=== PATIENT | female | born 1960 | race Caucasian/White ===

== ENCOUNTER 2016-10-28 11:16 | Emergency (ER) | payer OTHER ==
[~2016-10-28] VITALS: Ht 172.7 cm; Wt 62.5 kg
[~2016-10-28 11:16] MED LIST: ACIP20TA19; ACIP20TA19 PO; ALPR-138 PO; CELE10TA9 PO; HYOS0.1251 PO; HYOS0.129 PO; LISI2.5T3 PO; NUCYNTA; PERC10TA27 PO; SENO8.6T6 PO; TOPR25TA2 PO
[2016-10-28 11:20] VITALS: BP 155/75; PULSE 67; RESP 20; TEMP 97.6; O2SAT 100
[2016-10-28] MEDS ORDERED: KETOROLAC TROMETHAMINE 30 MG/ML (IVP) VIAL IV PUSH ONE (11:45)
--- NOTE | 2016-10-28 11:48 | PD ---
HPI Chief Complaint: Headache Time Seen by Provider: 11:42 Travel History International Travel<30 days: No Contact w/Intl Traveler<30days: No Traveled to known affect area: No History of Present Illness HPI 55-year-old female that presents to the ED for evaluation of headache and loss of vision to the left eye. The patient has loss of vision peripherally for the past 2 weeks and has been seen [address] [facility]. Per patient yesterday night she went for a second time as she continued to have the headaches and blurry vision and the recommended possible transfer but for some reason they did not transfer her as she did not meet criteria. Unclear. Apparently patient did not have an MRI and the doctor at the hospital for a prescription for stating that patient needed an MRI of the brain which the patient brings here. Patient also brings paperwork from her previous visit which states that they consulted with Dr. Diallo the eye doctor and the recommended follow-up in his office. Patient tells me that she never follow up with him and she doesn't know anything about this. He paperwork clearly states the patient was supposed to follow with Dr. Diallo. She does have a history of hypertension, hyperlipidemia, cervical cancer. She has no PCP and has no insurance. Patient comes here for evaluation. Per patient she was given a prescription for pain relievers but she has not taken them as she had not filled them. She denies any numbness, tingling, weakness anywhere else. She denies any chest pain. No shortness of breath. No trauma. PFSH Past Medical History Anxiety: Yes Depression: Yes Cancer: Yes (UTERINE/HYSTERECTOMY) Chemotherapy: Yes (last may 2009) Hypertension: Yes Past Surgical History Abdominal Surgery: Yes (BOWEL RESECTION-2008) Appendectomy: Yes Hysterectomy: Yes Social History Alcohol Use: Yes (OCCASIONAL) Tobacco Use: No Substance Use: No Allergies-Medications (Allergen,Severity, Reaction): Coded Allergies: Neomycin (Verified Allergy, Intermediate, 10/28/16) Reglan (Verified Allergy, Intermediate, 10/28/16) Benadryl (Verified Adverse Reaction, Severe, 10/28/16) Reported Meds & Prescriptions Reported Meds & Active Scripts Active Diclofenac Sodium DR (Diclofenac Sodium) 75 Mg Tabdr 75 Mg PO BID PRN Prednisone 20 Mg Tab 20 Mg PO BID Reported Amitriptyline (Amitriptyline HCl) 50 Mg Tab 50 Mg PO BID Lipitor (Atorvastatin Calcium) 40 Mg Tab 40 Mg PO HS Hydrochlorothiazide 25 Mg Tab 25 Mg PO DAILY Remeron Soltab (Mirtazapine) 45 Mg Tab 45 Mg PO HS Omeprazole 40 Mg Cap 40 Mg PO DAILY Celexa (Citalopram Hydrobromide) 40 Mg Tab 40 Mg PO DAILY Metoprolol Tartrate 25 Mg Tab 25 Mg PO BID Xanax (Alprazolam) 2 Mg Tab 2 Mg PO TID Fioricet (Wxkndtdfot-Tjcdwsjkcquik-Ecqwmwil) 50-300-40 Mg Cap 1 Cap PO Q4H PRN Prednisone 20 Mg Tab 20 Mg PO DIRECTED Review of Systems Except as stated in HPI: all other systems reviewed are Neg Physical Exam Narrative GENERAL: SKIN: Warm and dry. HEAD: Atraumatic. Normocephalic. EYES: Pupils equal and round 4 mm reactive to light and accommodation. No scleral icterus. No injection or drainage. EOM appear to be intact bilaterally. No obvious sign of deformity. Patient does have some peripheral vision loss to the left side on the left eye. Ophthalmic exam to be no sign of papilledema or vessel disease. IOPs were checked yesterday and were normal. ENT: No nasal bleeding or discharge. Mucous membranes pink and moist. Tongue is midline. No uvula deviation. NECK: Trachea midline. No JVD. CARDIOVASCULAR: Regular rate and rhythm. No murmurs, S3, S4. RESPIRATORY: No accessory muscle use. Clear to auscultation. Breath sounds equal bilaterally. GASTROINTESTINAL: Abdomen soft, non-tender, nondistended. Hepatic and splenic margins not palpable. MUSCULOSKELETAL: Extremities without clubbing, cyanosis, or edema. No obvious deformities. Full range of motion of the upper and lower extremities bilaterally. 2+ pulses bilaterally. No cervical, thoracic, lumbar spine tenderness to palpation. NEUROLOGICAL: Awake and alert. No obvious cranial nerve deficits. Motor grossly within normal limits. Five out of 5 muscle strength in the arms and legs. Normal speech. PSYCHIATRIC: Appropriate mood and affect; insight and judgment normal. Data Data Last Documented VS Vital Signs Date Time Temp Pulse Resp B/P Pulse Ox O2 Delivery O2 Flow Rate FiO2 10/28/16 15:50 97.0 70 16 121/80 10/28/16 11:48 Room Air 10/28/16 11:20 100 Orders Mri Brain W&W/O Contrast (10/28/16 ) Ketorolac Inj (Toradol Inj) (10/28/16 11:45) Iv Access Insert/Monitor (10/28/16 11:37) Complete Blood Count With Diff (10/28/16 11:37) Basic Metabolic Panel (Bmp) (10/28/16 11:37) Lorazepam Inj (Ativan Inj) (10/28/16 12:45) Morphine Inj (Morphine Inj) (10/28/16 16:00) Ondansetron Inj (Zofran Inj) (10/28/16 16:00) Methylprednisolone So Succ Inj (Solumedr (10/28/16 16:15) Mandatory Outpatient Referral (10/28/16 16:10) Mandatory Outpatient Referral (10/28/16 16:10) Labs Laboratory Tests Test 10/28/16 12:10 White Blood Count 4.7 TH/MM3 Red Blood Count 3.69 MIL/MM3 Hemoglobin 9.9 GM/DL Hematocrit 30.8 % Mean Corpuscular Volume 83.6 FL Mean Corpuscular Hemoglobin 26.8 PG Mean Corpuscular Hemoglobin 32.1 % Concent Red Cell Distribution Width 14.1 % Platelet Count 299 TH/MM3 Mean Platelet Volume 8.6 FL Neutrophils (%) (Auto) 60.8 % Lymphocytes (%) (Auto) 29.2 % Monocytes (%) (Auto) 7.5 % Eosinophils (%) (Auto) 1.8 % Basophils (%) (Auto) 0.7 % Neutrophils # (Auto) 2.9 TH/MM3 Lymphocytes # (Auto) 1.4 TH/MM3 Monocytes # (Auto) 0.4 TH/MM3 Eosinophils # (Auto) 0.1 TH/MM3 Basophils # (Auto) 0.0 TH/MM3 CBC Comment DIFF FINAL Differential Comment Sodium Level 139 MEQ/L Potassium Level 3.9 MEQ/L Chloride Level 105 MEQ/L Carbon Dioxide Level 27.5 MEQ/L Anion Gap 7 MEQ/L Blood Urea Nitrogen 11 MG/DL Creatinine 0.87 MG/DL Estimat Glomerular Filtration 67 ML/MIN Rate Random Glucose 85 MG/DL Calcium Level 9.3 MG/DL MDM Medical Decision Making Medical Screen Exam Complete: Yes Emergency Medical Condition: Yes Medical Record Reviewed: Yes Interpretation(s) CBC & BMP Diagram 10/28/16 12:10 Last Impressions Brain MRI 10/28/16 0000 Signed Impressions: Service Date/Time: Friday, October 28, 2016 14:54 - CONCLUSION: 1. Nonspecific white matter changes. 2. No acute intracranial abnormality. Ernesto Haley MD Differential Diagnosis Visual loss versus migraine headache versus mass versus CVA Narrative Course 55-year-old female that presents to the ED for evaluation of headache and visual loss. Patient was properly examined and was found to have signs and symptoms of unclear etiology. Patient comes here with a prescription from her doctor in [place] that told her that she needed an MRI. Prescription has signature of the PA that states the patient requires stat evaluation for MRI as patient could not afford this. Patient continues to have symptoms. Patient states having visual loss. Patient has had CTs and comes here with CT reports that show negative. At this time I do recommend MRI to make sure there is nothing acute. Patient does one also an ophthalmologic consultation but unfortunately there is no ophthalmology credit control assistant today. Patient was given IV Toradol. MRI showed nonspecific white matter changes. My attending who recommended I speak with neurology. I spoke with Dr. Stewart Over the phone who does not recommend admission at this time. She does recommend follow-up with ophthalmology for evaluation of the visual loss as well as follow with her for MS workup. Patient was given mandatory furls. Patient was given information by me and Dr. French about this. At this time Dr. Stewart recommends starting her on steroids. Prednisone was prescribed as well as diclofenac sodium. Patient was given morphine for pain. Patient was told to follow with PCP. See ED worsening symptoms. Diagnosis Primary Impression: Atypical migraine Patient Instructions: General Instructions Additional Instructions: Follow with ophthalmology. Make sure to use a number we can contacted to get an appointment with your eye doctor, as well as a neurologist. See ED if worsening symptoms. Take meds as prescribed. Med/Other Pt SpecificInfo: Prescription(s) given Scripts Diclofenac Sodium DR 75 Mg Tabdr75 Mg PO BID PRN (PAIN SCALE 1 TO 10) #20 TAB Prov:Kaleigh French MD 10/28/16 Prednisone 20 Mg Tab20 Mg PO BID #10 TAB Prov:Kaleigh French MD 10/28/16 Disposition: 01 DISCHARGE HOME Condition: Stable Uziel Gonzalez October 28, 2016 11:48
[2016-10-28] MEDS ORDERED: REME45TA2 PO (12:27)
[2016-10-28] MEDS ORDERED: PRED20 PO ×2 (12:27→16:13)
[2016-10-28] MEDS ORDERED: OMEP40CA2 PO (12:27)
[2016-10-28] MEDS ORDERED: LIPI40TA PO (12:27)
[2016-10-28] MEDS ORDERED: AMIT50TA3 PO (12:27)
[2016-10-28] MEDS ORDERED: AMIT1TAB79 (12:27)
[2016-10-28] MEDS ORDERED: HYDR25TA5 PO (12:27)
[2016-10-28] MEDS ORDERED: XANA2TAB2 PO (12:27)
[2016-10-28] MEDS ORDERED: CELE40TA PO (12:27)
[2016-10-28] MEDS ORDERED: METO25TA3 PO (12:27)
[2016-10-28] MEDS ORDERED: BUTA1CAP PO (12:27)
[2016-10-28 12:36] LABS: AUTOMATED NEUTROPHIL # 2.9 TH/MM3 (1.8-7.7); BASOPHIL % 0.7 % (0.0-2.0); EOSINOPHIL # 0.1 TH/MM3 (0-0.4); EOSINOPHIL % 1.8 % (0.0-4.0); HEMATOCRIT 30.8 % (35.0-46.0); HEMO FLAGS DIFF FINAL; LYMPH % 29.2 % (9.0-44.0); LYMPHOCYTE # 1.4 TH/MM3 (1.0-4.8); MEAN CELL VOLUME 83.6 FL (80.0-100.0); MEAN CORPUSCULAR HEMOGLOBIN 26.8 PG (27.0-34.0); MEAN CORPUSCULAR HGB CONC 32.1 % (32.0-36.0); MONO % 7.5 % (0.0-8.0); NEUT % 60.8 % (16.0-70.0); PLATELET COUNT 299 TH/MM3 (150-450); RED BLOOD COUNT 3.69 MIL/MM3 (4.00-5.30); RED CELL DISTRIBUTION WIDTH 14.1 % (11.6-17.2); WHITE BLOOD COUNT 4.7 TH/MM3 (4.0-11.0)
[2016-10-28] MEDS ORDERED: LORazepam 2 MG/ML VIAL IV PUSH ONE (12:45)
[2016-10-28 13:03] LABS: BICARBONATE 27.5 MEQ/L (21.0-32.0); POTASSIUM 3.9 MEQ/L (3.5-5.1)
[2016-10-28 15:50] VITALS: BP 121/80; PULSE 70; RESP 16; TEMP 97
--- NOTE | 2016-10-28 15:52 | RADRPT ---
EXAM DATE/TIME: 10/28/2016 14:54 [facility] COMPARISON: CT BRAIN W/O CONTRAST, March 11, 2015, 17:53. INDICATIONS : Cephalgia. Visual disturbances. CONTRAST: 14 cc Omniscan (gadodiamide) IV MEDICAL HISTORY : Hypertension. Uterine ca. SURGICAL HISTORY : Hysterectomy. Bowel surgery for obstructuion. ENCOUNTER: Initial ACUITY: 2 day PAIN SCORE: 7/10 LOCATION: head TECHNIQUE: Multiplanar, multisequence MRI of the brain was performed both prior to and following the administrat ion of paramagnetic contrast. FINDINGS: CEREBRUM: The ventricles are normal for age. No evidence of midline shift, mass lesion, hemorrhage or acute in farction. No extraaxial fluid collections are seen. The pituitary gland and suprasellar cistern are normal in configuration. WHITE MATTER: Scattered foci of bright T2 signal abnormalities are seen in the white matter. POSTERIOR FOSSA: The cerebellum and brainstem are intact. The 4th ventricle is midline. The cerebellopontine angle is unremarkable. The cerebellar tonsils are normal in position. DIFFUSION IMAGING: No focal areas of restricted diffusion are seen. No evidence of acute infarction. EXTRACRANIAL: The visualized portions of the orbits and paranasal sinuses are unremarkable. POST-CONTRAST: No abnormal areas of parenchymal or dural enhancement. No evidence of blood-brain barrier breakdown. CONCLUSION: 1. Nonspecific white matter changes. 2. No acute intracranial abnormality. Ernesto Haley MD on October 28, 2016 at 15:46 Board Certified Radiologist. This report was verified electronically.
[2016-10-28] MEDS ORDERED: MORPHINE SULFATE 4 MG/ML INJ IV PUSH ONE (16:00)
[2016-10-28] MEDS ORDERED: ONDANSETRON HCL 4 MG/2 ML VIAL IV PUSH ONE (16:00)
[2016-10-28] MEDS ORDERED: DICL75TA PO (16:13)
[2016-10-28] MEDS ORDERED: methylPREDNISolone SOD SUCC 125 MG/2 ML VIAL IV PUSH ONE (16:15)
[2016-10-28] MEDS ORDERED: GADODIAMIDE PF 287 MG/ML 5 ML VIAL (for RAD MRI) IV ONE (16:24)
[2016-10-28 17:43] VITALS: BP 112/63; PULSE 66; RESP 16; O2SAT 98
--- NOTE | 2016-10-28 17:50 | PD ---
Data Data Last Documented VS Vital Signs Date Time Temp Pulse Resp B/P Pulse Ox O2 Delivery O2 Flow Rate FiO2 10/28/16 17:43 66 16 112/63 98 10/28/16 15:50 97.0 10/28/16 11:48 Room Air Orders Mri Brain W&W/O Contrast (10/28/16 ) Ketorolac Inj (Toradol Inj) (10/28/16 11:45) Iv Access Insert/Monitor (10/28/16 11:37) Complete Blood Count With Diff (10/28/16 11:37) Basic Metabolic Panel (Bmp) (10/28/16 11:37) Lorazepam Inj (Ativan Inj) (10/28/16 12:45) Morphine Inj (Morphine Inj) (10/28/16 16:00) Ondansetron Inj (Zofran Inj) (10/28/16 16:00) Methylprednisolone So Succ Inj (Solumedr (10/28/16 16:15) Mandatory Outpatient Referral (10/28/16 16:10) Mandatory Outpatient Referral (10/28/16 16:10) Gadodiamide Pf Inj (Omniscan Pf Inj) (10/28/16 16:24) Labs Laboratory Tests Test 10/28/16 12:10 White Blood Count 4.7 TH/MM3 Red Blood Count 3.69 MIL/MM3 Hemoglobin 9.9 GM/DL Hematocrit 30.8 % Mean Corpuscular Volume 83.6 FL Mean Corpuscular Hemoglobin 26.8 PG Mean Corpuscular Hemoglobin 32.1 % Concent Red Cell Distribution Width 14.1 % Platelet Count 299 TH/MM3 Mean Platelet Volume 8.6 FL Neutrophils (%) (Auto) 60.8 % Lymphocytes (%) (Auto) 29.2 % Monocytes (%) (Auto) 7.5 % Eosinophils (%) (Auto) 1.8 % Basophils (%) (Auto) 0.7 % Neutrophils # (Auto) 2.9 TH/MM3 Lymphocytes # (Auto) 1.4 TH/MM3 Monocytes # (Auto) 0.4 TH/MM3 Eosinophils # (Auto) 0.1 TH/MM3 Basophils # (Auto) 0.0 TH/MM3 CBC Comment DIFF FINAL Differential Comment Sodium Level 139 MEQ/L Potassium Level 3.9 MEQ/L Chloride Level 105 MEQ/L Carbon Dioxide Level 27.5 MEQ/L Anion Gap 7 MEQ/L Blood Urea Nitrogen 11 MG/DL Creatinine 0.87 MG/DL Estimat Glomerular Filtration 67 ML/MIN Rate Random Glucose 85 MG/DL Calcium Level 9.3 MG/DL MDM Supervised Visit with AMBERLY: Yes Narrative Course The history, exam, and medical decision-making in the associated midlevel provider note were completed with my assistance. I reviewed and agree with the findings presented. I attest that I had a [id number] encounter with the patient on the same day, and personally performed and documented my assessment and findings in the medical record. *My assessment and Findings: This is a 55 year old female who presents to the emergency department with headache and blurry vision involving the left eye that 's been going on for 2 weeks. She feels like it's been getting worse. She's been seen at multiple hospitals and was told she needed an MRI. She has a normal neurologic exam with the exception of some poor visual acuity in the lateral visual field but no obvious visual field cut. MRI was obtained which demonstrates nonspecific white matter changes. We discussed this with Dr. Stevens. She thinks it's unlikely that this is MS given the patient's headache however she recommended starting the patient on prednisone, and having her follow-up with the mandatory referral with both neurology and ophthalmology. She didn't think she needed to be admitted at this time given the subacute nature of the patient's symptoms and nonspecific findings on MRI. Diagnosis Primary Impression: Atypical migraine Patient Instructions: General Instructions Departure Forms: Tests/Procedures Additional Instruction: Follow with ophthalmology. Make sure to use a number we can contacted to get an appointment with your eye doctor, as well as a neurologist. See ED if worsening symptoms. Take meds as prescribed. Scripts Diclofenac Sodium DR 75 Mg Tabdr75 Mg PO BID PRN (PAIN SCALE 1 TO 10) #20 TAB Prov:Kaleigh French MD 10/28/16 Prednisone 20 Mg Tab20 Mg PO BID #10 TAB Prov:Kaleigh French MD 10/28/16 Disposition: 01 DISCHARGE HOME Condition: Stable Kaleigh French MD October 28, 2016 17:50
== END 2016-10-28 18:09 | disposition home or self-care (01) ==
LOC: NEPE 11:16
DX: G43.009 Migraine without aura, not intractable, without status migrainosus (principal); H53.8 Other visual disturbances; I10 Essential (primary) hypertension; E78.5 Hyperlipidemia, unspecified; Z85.41 Personal history of malignant neoplasm of cervix uteri
CPT/HCPCS: 70553; 80048; 85025; 96374; 96375; 99284; A9579; J1885; J2060; J2270; J2405; J2930